=== PATIENT | male | born 1960 | race Caucasian/White ===

== ENCOUNTER 2017-09-16 09:23 | Emergency (ER) | payer MEDICARE, OTHER ==
[2017-09-16] MEDS: ONDANSETRON 4 MG INJ IV (09:49)
[2017-09-16] MEDS: DIAZEPAM 5 MG/ML SYG IV (09:49)
[2017-09-16] MEDS: SOD CHLORIDE 0.9% 1,000 ML IV (09:52)
[2017-09-16 10:09] LABS: ADD MAN DIFF? NO
[2017-09-16 10:18] LABS: BASOPHILS % 0.4 % (0.0-2.0); EOSINOPHILS # 0.2 10^3/ul (0.0-0.5); EOSINOPHILS % 1.9 % (0.0-7.0); HEMATOCRIT 47.4 % (42.0-52.0); HEMOGLOBIN 16.1 g/dl (14.0-18.0); LYMPHOCYTES # 2.8 10^3/ul (0.8-2.9); MEAN CORPUSCULAR VOLUME 91.2 fl (82.0-101.0); MONOCYTE # 0.6 10^3/ul (0.3-0.9); MONOCYTES % 6.7 % (0.0-11.0); NEUTROPHIL # 5.4 10^3/ul (1.6-7.5); NEUTROPHILS % 59.4 % (39.0-77.0); PLATELET COUNT 257 10^3/UL (140-415); RED CELL DISTRIBUTION WIDTH 12.5 % (11.5-14.5)
[2017-09-16 10:36] LABS: ALANINE AMINOTRANSFERASE 33 IU/L (13-69); ALBUMIN 4.6 g/dl (3.3-4.9); ALBUMIN/GLOBULIN RATIO 1.31; ALKALINE PHOSPHATASE 96 IU/L (42-121); ANION GAP 18 (8-16); ASPARTATE AMINO TRANSFERASE 29 IU/L (15-46); BILIRUBIN,INDIRECT 0.7 mg/dl (0-1.1); BILIRUBIN,TOTAL 0.7 mg/dl (0.2-1.3); BLOOD UREA NITROGEN 13 mg/dl (7-20); CALCIUM 9.1 mg/dl (8.4-10.2); CARBON DIOXIDE 23 mmol/L (21-31); CHLORIDE 106 mmol/L (97-110); CREATININE 0.83 mg/dl (0.61-1.24); GLUCOSE 153 mg/dl (70-220); SODIUM 143 mmol/L (135-144); TOTAL PROTEIN 8.1 g/dl (6.1-8.1)
[2017-09-16 10:50] LABS: TROPONIN-I < 0.012 ng/ml (0.000-0.120)
[2017-09-16] MEDS: SOD CHLORIDE 0.9% 100 ML (11:26)
[2017-09-16] MEDS: IOHEXOL 300MG/ML 150 ML BTL (11:26)
[2017-09-16] MEDS: MECLIZINE 12.5 MG TAB PO (12:58)
== END 2017-09-16 13:04 | disposition home or self-care (01) ==
LOC: FTE 09:23
DX: R42 Dizziness and giddiness (principal); R11.2 Nausea with vomiting, unspecified; I10 Essential (primary) hypertension
CPT/HCPCS: 70491; 80053; 84484; 85025; 96374; 96375; 99285-25